=== PATIENT | female | born 1975 | race Two or more races ===

== ENCOUNTER → 2018-11-12 | Outpatient (CLI) | payer OTHER | END | disposition home or self-care (01) | LOC: RAD 501 10:57 | DX: R05 Cough (principal) ==

== ENCOUNTER 2023-01-10 10:25 | Outpatient (CLI) | payer OTHER | END 2023-01-10 10:31 | disposition home or self-care (01) | LOC: SONOGRAMA 10:25 | PROVIDERS: ATTEND Pathology Anatomic Pathology & Clinical Pathology | DX: D34 Benign neoplasm of thyroid gland (principal); E07.9 Disorder of thyroid, unspecified ==